=== PATIENT | female | born 1980 | race African-American/Black ===

== ENCOUNTER 2017-03-26 11:40 | Emergency (ER) | payer MEDICAID ==
[2017-03-26 13:12] LABS: APPEARANCE HAZY (CLEAR); BACTERIA MANY /hpf (NONE SEEN); BILIRUBIN NEGATIVE (NEGATIVE); COLOR DK YELLOW (YELLOW); EPITHELIAL CELLS OCC /hpf (0-5); GLUCOSE NEGATIVE (NEGATIVE); KETONE NEGATIVE (NEGATIVE); LEUKOCYTE ESTERASE NEGATIVE (NEGATIVE); MUCUS >1+ /lpf (NONE SEEN); NITRITE POSITIVE (NEGATIVE); PROTEIN NEGATIVE (NEGATIVE); UROBILINOGEN NORMAL (NORMAL); WHITE CELLS - URINE OCC /hpf (0-5)
== END 2017-03-26 15:06 | disposition home or self-care (01) ==
LOC: D.ER 11:40
PROVIDERS: Emergency Medicine
DX: R30.0 Dysuria (principal)

== ENCOUNTER 2017-08-02 22:22 | Emergency (ER) | payer MEDICAID ==
[2017-08-02 23:16] LABS: HCG URINE POSITIVE (NEGATIVE)
[2017-08-02 23:19] LABS: APPEARANCE CLEAR (CLEAR); BILIRUBIN NEGATIVE (NEGATIVE); COLOR YELLOW (YELLOW); GLUCOSE NEGATIVE (NEGATIVE); KETONE NEGATIVE (NEGATIVE); LEUKOCYTE ESTERASE NEGATIVE (NEGATIVE); NITRITE NEGATIVE (NEGATIVE); PROTEIN NEGATIVE (NEGATIVE); SPECIFIC GRAVITY 1.015 (1.005-1.020); UROBILINOGEN NORMAL (NORMAL)
[2017-08-02 23:24] LABS: BASOPHILS 0.2 % (0-2); EOSINOPHILS 1.1 % (0-7); HEMATOCRIT 37.3 % (36.0-48.0); HEMOGLOBIN 12.5 g/dL (12-16); IMMATURE GRANULOCYTES 0.2 % (0-5); LYMPHOCYTES 35.8 % (15-50); MCH 32.9 pg (26.0-34.0); MCHC 33.5 g/dL (31.0-37.0); MCV 98.2 fL (80.0-100.0); MEAN PLATELET VOLUME 9.7 fL (7.4-10.4); NEUTROPHILS 54.7 % (40-80); PLATELET COUNT 172 10x3/uL (130-400); RDW 12.8 % (11.5-14.5); WBC 5.3 10x3/uL (4.8-10.8)
[2017-08-02 23:40] LABS: ALBUMIN 4.1 g/dL (3.4-5.0); ALKALINE PHOSPHATASE 62 U/L (46-116); ALT (SGPT) 16 U/L (10-68); BILIRUBIN - TOTAL 0.26 mg/dL (0.2-1.3); CALC OSMOLALITY 277 mosm/kg (275-300); CALCIUM 8.9 mg/dL (8.5-10.1); CARBON DIOXIDE 27.6 mmol/L (21.0-32.0); CHLORIDE - SERUM 102 mmol/L (98-107); CREATININE - SERUM 0.9 mg/dL (0.6-1.3); GLUCOSE 94 mg/dL (74-106); POTASSIUM - SERUM 3.4 mmol/L (3.5-5.1); PROTEIN - SERUM 8.3 g/dL (6.4-8.2); SODIUM 139 mmol/L (136-145); UREA NITROGEN 12 mg/dL (7-18); eGFR NON AFRICAN AMERICAN 74 mL/min (90-120)
[2017-08-03] LABS: CREATINE KINASE 222 UL (21-215)
[2017-08-03 00:01] LABS: TROPONIN-I < 0.017 ng/mL (0.000-0.060)
[2017-08-03 00:05] LABS: CKMB 0.5 U/L (0.0-3.6)
[2017-08-03 00:09] LABS: HCG SERUM POSITIVE (NEGATIVE)
== END 2017-08-03 00:16 | disposition home or self-care (01) ==
LOC: D.ER 22:22
PROVIDERS: Emergency Medicine
DX: F41.9 Anxiety disorder, unspecified (principal); F45.8 Other somatoform disorders; Z32.01 Encounter for pregnancy test, result positive